=== PATIENT | female | born 2000 | race Caucasian/White ===

== ENCOUNTER 2022-11-24 05:45 | Day surgery (SDC) | payer OTHER ==
[2022-11-23 11:36] VITALS: BMI 32.2
[2022-11-24] MEDS ORDERED: EPINEPHrine 1 MG/ML VIAL ONE (06:50)
[2022-11-24] MEDS ORDERED: Gentamicin 80 MG/2 ML VIAL ONE (06:50)
[2022-11-24] MEDS ORDERED: Bupivacaine PF 0.5% 30 ML VIAL ONE (06:51)
[2022-11-24] MEDS ORDERED: Midazolam HCl 2 mg/2 ml Vial ONE (07:10)
[2022-11-24] MEDS ORDERED: Scopolamine 1.5 mg/72 hour Patch ONE (07:10)
[2022-11-24] MEDS ORDERED: Famotidine/PF 20 mg/2ml Vial ONE (07:10)
[2022-11-24] MEDS ORDERED: Ondansetron PF 4 MG/2 ML Vial ONE (07:16)
[2022-11-24] MEDS ORDERED: PROPOFOL 40 ML ONE (07:16)
[2022-11-24] MEDS ORDERED: Fentanyl 250 MCG/5 ML VIAL ONE (07:16)
[2022-11-24] MEDS ORDERED: Glycopyrrolate 0.2 MG/ML 5 ML SYRINGE ONE (07:16)
[2022-11-24] MEDS ORDERED: Dexamethasone 20 MG/5 ML VIAL ONE (07:16)
[2022-11-24] MEDS ORDERED: Rocuronium Bromide 10 MG/ML (10ML VIAL) ONE (07:16)
[2022-11-24] MEDS ORDERED: Lidocaine 2% PF 5 ML VIAL ONE (07:16)
[2022-11-24] MEDS ORDERED: CEFAZOLIN 2 GM VIAL ONE (07:19)
[2022-11-24] MEDS ORDERED: diphenhydrAMINE 50 MG/ML VIAL ONE (07:22)
[2022-11-24] MEDS ORDERED: KETAMINE 100 MG/ML (5ML VIAL) ONE (07:27)
[2022-11-24] MEDS ORDERED: HYDROmorphone 0.5 MG/0.5 ML SYRINGE ONE (07:28)
[2022-11-24] MEDS ORDERED: Albuterol HFA (OR) 200 PUFF INH ONE (07:41)
[2022-11-24] MEDS ORDERED: fentaNYL 50 mcg/mL 1 mL Vial ONE (08:15)
== END 2022-11-24 10:50 | disposition home or self-care (01) ==
LOC: CSHSDC 05:45
PROVIDERS: ATTEND Orthopaedic Surgery
PROC: 0PSF06Z Reposition Right Humeral Shaft with Intramedullary Internal Fixation Device, Open Approach (ICD-10-PCS; principal; 2022-11-24)
DX: S42.321A Displaced transverse fracture of shaft of humerus, right arm, initial encounter for closed fracture (principal); F32.A Depression, unspecified; Z79.899 Other long term (current) drug therapy; Z88.1 Allergy status to other antibiotic agents; Z95.1 Presence of aortocoronary bypass graft; V89.2XXA Person injured in unspecified motor-vehicle accident, traffic, initial encounter
CPT/HCPCS: J0171; J1100; J1170; J1200; J1580; J2001; J2250; J2405; J2704; J3010; S0020; S0028